=== PATIENT | female | born 1955 | race Caucasian/White ===

== ENCOUNTER → 2019-11-22 | Outpatient (CLI) | payer BC | LOC: MC.RAD 07:30 | DX: Z12.31 Encounter for screening mammogram for malignant neoplasm of breast (principal) ==

== ENCOUNTER 2021-06-04 08:47 | Day surgery (SDC) | payer BC ==
[~2021-06-04] VITALS: Ht 165.1 cm; Wt 64.6 kg
[2021-06-04 10:16] VITALS: BP 138/74; PULSE 68; TEMP 98.3
[2021-06-04] MEDS ORDERED: CENTRUM SILVER1 CTB PO (10:23)
[2021-06-04] MEDS ORDERED: STRESS FORMULA PO (10:24)
[2021-06-04] MEDS ORDERED: CLARITIN 1010 MG/TAB PO (10:24)
[2021-06-04] MEDS ORDERED: WELLBUTRIN XL300 M1 PO (10:24)
[2021-06-04] MEDS ORDERED: SYNTHROID0.05 MG/TA PO (10:25)
[2021-06-04] MEDS ORDERED: CELEXA 20MG20 MG/TAB PO (10:25)
[2021-06-04] MEDS ORDERED: METAMUCIL3.4 GM/DOS PO (10:27)
[2021-06-04 11:25] VITALS: BP 115/63; PULSE 66; TEMP 97.7
--- NOTE | 2021-06-04 11:25 | NUR ---
1125-Patient arrived back to [facility] [place] [facility] s/p colonoscopy. She is resting in recliner and denies having any abdominal pain or nausea. Given cranberry juice and blueberry muffin. Leqkht-ml-tce, Layo, brought back to sit with her. Abdomen is soft and nontender to palpation. Lungs are clear throughout. Call freeman placed in reach.
--- NOTE | 2021-06-04 11:35 | NUR ---
1135-Dr. Jones is in and speaking with patient regarding procedure findings. Questions addressed. 1140-Patient continues doing well and vitals are stable. She tolerated juice and muffin without any nausea or vomiting. She continues to deny having any abdominal pain or discomfort.
[2021-06-04 11:40] VITALS: BP 130/80; PULSE 71
[2021-06-04 11:55] VITALS: BP 127/64; PULSE 66; TEMP 98
--- NOTE | 2021-06-04 11:55 | NUR ---
1155-Patient continues doing well and is preparing for discharge home. IV site from right hand dc'd and tip of catheter is intact. Cotton ball and tape applied to removal site. No active bleeding noted. She is getting dressed and ready for discharge home. Will prepare discharge paperwork/instructions. 1205-Discharge instructions discussed and answered questions/concerns she had. Handouts provided regarding sedation, colonoscopy, and hemorrhoids. Patient verbalized understanding and is aware she cannot drive herself today. Copy of instructions provided to her along with pictures from procedure. 1210-Taken via wheelchair and assisted into private car with her [id number]-op-rwr, Layo. Belongings with her along with dc instructions.
== END 2021-06-04 12:10 | disposition home or self-care (01) ==
LOC: SDCO 08:47
DX: Z12.11 Encounter for screening for malignant neoplasm of colon (principal); K64.0 First degree hemorrhoids; K64.4 Residual hemorrhoidal skin tags; M19.90 Unspecified osteoarthritis, unspecified site; E03.9 Hypothyroidism, unspecified; F32.9 Major depressive disorder, single episode, unspecified; Z20.822 Contact with and (suspected) exposure to COVID-19; Z79.899 Other long term (current) drug therapy; Z85.828 Personal history of other malignant neoplasm of skin
CPT/HCPCS: J2704; J3010; J7030

== ENCOUNTER → 2021-08-06 | Outpatient (CLI) | payer BC ==
[~2021-08-06] MED LIST: CELEXA 20MG20 MG/TAB PO; CENTRUM SILVER1 CTB PO; CLARITIN 1010 MG/TAB PO; METAMUCIL3.4 GM/DOS PO; STRESS FORMULA PO; SYNTHROID0.05 MG/TA PO; WELLBUTRIN XL300 M1 PO
== END ==
LOC: MC.RAD 07:51
DX: Z12.31 Encounter for screening mammogram for malignant neoplasm of breast (principal); Z78.0 Asymptomatic menopausal state

== ENCOUNTER → 2023-10-29 | Outpatient (CLI) | payer MEDICARE, OTHER | LOC: MC.RAD 13:00 | DX: Z12.31 Encounter for screening mammogram for malignant neoplasm of breast (principal) ==